=== PATIENT | male | born 1940 | race Native Hawaiian/Other Pacific Islander ===

== ENCOUNTER → 2016-12-09 | Outpatient (CLI) | payer MEDICARE ==
[~2016-12-09] MED LIST: BISOPROLOL PO; CLOPIDOGREL75 MG PO; COZAAR50 MG PO; HCTZ PO; LIPITOR20 MG PO; Metformin Hydr500 MG PO
== END | disposition home or self-care (01) ==
LOC: CT 09:53
DX: G45.8 Other transient cerebral ischemic attacks and related syndromes (principal)